=== PATIENT | female | born 1995 | race African-American/Black ===

== ENCOUNTER 2018-07-24 16:55 | Emergency (ER) | payer MEDICAID ==
[~2018-07-24] VITALS: Ht 157.5 cm; Wt 64.0 kg
[2018-07-24 17:01] VITALS: BP 104/71
[2018-07-24] MEDS ORDERED: ibuprofen tablet 400 MG TABLET PO ONE (17:35)
== END 2018-07-24 17:48 | disposition home or self-care (01) ==
LOC: ER 16:58
DX: J06.9 Acute upper respiratory infection, unspecified (principal); J02.9 Acute pharyngitis, unspecified
CPT/HCPCS: 99282